=== PATIENT | female | born 1975 | race Caucasian/White ===

== ENCOUNTER 2018-01-26 21:11 | Inpatient (IN) | payer OTHER ==
[~2018-01-26] VITALS: Ht 167.6 cm; Wt 130.5 kg
[~2018-01-26 21:11] MED LIST: ONE DAILY WOME1 EACH PO; SYNTHROID100 MCG PO; XANAX0.25 MG PO
[2018-01-27 10:33] VITALS: BP 133/86
[2018-01-27 16:17] VITALS: BP 146/78
[2018-01-27 19:54] VITALS: BP 136/75
[2018-01-28 00:23] VITALS: BP 135/77
[2018-01-28 03:54] VITALS: BP 131/63
[2018-01-28 07:44] LABS: HEMATOCRIT 37.7 % (36.0-46.0); MCH 26.3 PG (29.0-34.0); MCHC 31.8 G/DL (30.0-36.0); MCV 82.5 FL (83-99); PLATELET COUNT 262 K/uL (156-360); RBC DIS.WIDTH-CV 17.6 % (11.8-14.6); RBC DIS.WIDTH-SD 52.8 % (39-53); RED BLOOD COUNT 4.57 M/uL (3.80-5.20); WHITE BLOOD COUNT 8.8 K/uL (4.1-10.2)
[2018-01-28 08:00] VITALS: BP 125/66
== END 2018-01-28 14:54 | disposition home or self-care (01) | DRG 620 ==
LOC: ENRESERV 21:11 → 2SOUTH 01-27 09:41 → ENRESERV 01-27 16:08 → 2EAST 01-27 16:16 → ENPENDDIS 01-28 → 2EAST 01-28 14:54
PROVIDERS: Surgery
PROC: 0DB64Z3 Excision of Stomach, Percutaneous Endoscopic Approach, Vertical (ICD-10-PCS; principal; 2018-01-27)
DX: E66.01 Morbid (severe) obesity due to excess calories (principal); D68.59 Other primary thrombophilia; Z68.41 Body mass index [BMI] 40.0-44.9, adult; E03.9 Hypothyroidism, unspecified; K21.9 Gastro-esophageal reflux disease without esophagitis; D50.9 Iron deficiency anemia, unspecified
CPT/HCPCS: 82948; 85027; C9113; J0131; J0690; J1100; J1170; J1644; J1650; J2250; J2405; J2550; J2710; J2765; J3480; J7120; Q0169; Q0175; S0020